=== PATIENT | male | born 1965 | race Caucasian/White ===

== ENCOUNTER 2017-11-17 21:00 | Emergency (ER) | payer OTHER ==
[~2017-11-17] VITALS: Ht 180.3 cm; Wt 104.3 kg
[~2017-11-17 21:00] MED LIST: E-200200 UNIT PO; HYDROCODON-ACE1 EA10 PO; MULTI VITAMIN1 EACH PO; NORCO 5-325 TA1 EACH PO
[2017-11-17] MEDS ORDERED: MELOXICAM15 MG PO (21:10)
[2017-11-17] MEDS ORDERED: ZYRTEC10 MG PO (21:11)
[2017-11-17] MEDS ORDERED: RANITIDINE HCL300 MG PO (21:12)
[2017-11-17] MEDS ORDERED: NORCO 5-325 TA1 EACH PO (22:48)
--- NOTE | 2017-11-18 11:22 | NUR ---
FAXED ER NOTES AND SUMMARY TO THE [facility], AFTER TALKING WITH STUART THIS AM.
== END 2017-11-17 23:00 | disposition home or self-care (01) ==
LOC: ED 21:00
DX: N23 Unspecified renal colic (principal); Z87.891 Personal history of nicotine dependence; Z88.5 Allergy status to narcotic agent; Z79.899 Other long term (current) drug therapy
CPT/HCPCS: 74176; 80053; 81001; 83690; 85025; 96374; 96375; 99284; J1170; J2405